=== PATIENT | male | born 1990 | race Hispanic/Latino ===

== ENCOUNTER 2021-04-06 05:30 | Emergency (ER) | payer SELFPAY ==
--- OUTSIDE RECORDS SUMMARY | 2021-04-06 05:32 | XMS REPORT | Continuity of Care Document ---
:1990 Author Organization [facility] t Address [address] [place] [address] Care Team Providers Name Role Phone Silverio Nam DO Attending Clinician Problems This patient has no known problems. Allergies, Adverse Reactions, Alerts This patient has no known allergies or adverse reactions. Medications This patient has no known medications. Procedures This patient has no known procedures. Encounters Start End Encounter Admission Attending Care Care Encounter Source Date/Time Date/Time Type Type Clinicians Facility Department ID 2020-05-22 2020-05-22 Emergency IZABELA Nam [id number] 09:45:00 11:14:00 Silverio Thapa [id number] [place] [id number] [place] [id number] Results This patient has no known results.
[2021-04-06] MEDS ORDERED: LIDOCAINE 1% MPF 5 ML VIAL ONE (07:39)
[2021-04-06] MEDS ORDERED: TETANUS & DIPHTHERIA TOX,ADULT 0.5 ML VIAL ONE (07:39)
[2021-04-06] MEDS ORDERED: HYDROCODONE/APAP 10/325 TAB ONE (07:39)
[2021-04-06] MEDS ORDERED: ONDANSETRON 4 MG (ODT) TAB ONE (08:11)
--- NOTE | 2021-04-06 08:23 | RAD REPORT ---
EXAM DESCRIPTION: CT - Thorax Wo Con CLINICAL HISTORY: Chest pain PAIN COMPARISON: No comparisons FINDINGS: The lungs are clear. No pleural thickening or pleural effusion. No pneumothorax. No axillary, mediastinal or hilar adenopathy. Left lateral seventh rib is mildly fractured. No gross upper abdominal finding. All CT scans are performed using dose optimization technique as appropriate and may include automated exposure control or mA/KV adjustment according to patient size. IMPRESSION: Mildly fractured left lateral seventh rib.No pneumothorax.
--- NOTE | 2021-04-07 17:14 | ER ---
Nurse's Notes [facility] Name: Aaron Chen III Age: 31 yrs Sex: Male : 1990 Arrival Date: 04/06/2021 Time: 05:34 Bed 15 Private MD: Diagnosis: Laceration without foreign body of knee;Fall on same level from slipping, tripping and stumbling with subsequent striking against object;Fracture of one rib, left side Presentation: 04/06 06:04 Chief complaint: Patient states: he was at a friend's house in the pool approx 90 mins bb ago tried to climb out on the ladder and fell injuring his left side and has a laceration to the right knee denies LOC. Care prior to arrival: None. Mechanism of Injury: Fall. Trauma event details: Injury occurred in the [facility], Injury occurred: at home. Injury occurred: April 06, 2021. 06:04 Acuity: SHARMIN 3 bb 06:04 Method Of Arrival: Ambulatory bb 06:08 Coronavirus screen: At this time, the client does not indicate any symptoms associated bb with coronavirus-19. Ebola Screen: No symptoms or risks identified at this time. Initial Sepsis Screen: Does the patient meet any 2 criteria? No. Patient's initial sepsis screen is negative. Does the patient have a suspected source of infection? No. Patient's initial sepsis screen is negative. Risk Assessment: Do you want to hurt yourself or someone else? Patient reports no desire to harm self or others. Onset of symptoms was April 06, 2021. Trauma Activation: Not Applicable Physician: ED Physician; Name: ; Notified At: ; Arrived At: Physician: General Surgeon; Name: ; Notified At: ; Arrived At: Physician: Radiology; Name: ; Notified At: ; Arrived At: Physician: Respiratory; Name: ; Notified At: ; Arrived At: Physician: Lab; Name: ; Notified At: ; Arrived At: Historical: - Allergies: 06:08 No Known Allergies; bb - Home Meds: 06:08 None [Active]; bb - PMHx: 06:08 None; bb - PSHx: 06:08 elbow surgery; bb - Immunization history: Last tetanus immunization: unknown. - Social history:: Smoking status: Patient reports the use of cigarette tobacco products, smokes one-half pack cigarettes per day, Patient uses alcohol, occasionally. Patient/guardian denies using street drugs. Screenin:04 Abuse screen: Denies threats or abuse. Tuberculosis screening: No symptoms or risk bb factors identified. 07:59 Nutritional screening: No deficits noted. Fall Risk None identified. ph Primary Survey: 06:04 NO uncontrolled hemorrhage observed. A: The patient is alert. Airway: patent. bb Breathing/Chest: Respiratory pattern: regular, Respiratory effort: spontaneous. Circulation: Heart tones present. Disability Alert. 07:59 Exposure/Environment: Obvious injury(ies) are noted at this time: lacerations to R ph knee. Reassessment Breathing/Chest Respiratory pattern Regular Respiratory effort Spontaneous Unlabored. Assessment: 06:04 General: Appears in no apparent distress. Behavior is calm, cooperative. Pain: bb Complains of pain in left side Pain currently is 8 out of 10 on a pain scale. Neuro: Level of Consciousness is awake, alert, obeys commands, Oriented to person, place, time, situation. Cardiovascular: Capillary refill < 3 seconds Patient's skin is warm and dry. Respiratory: Respiratory effort is even, unlabored, Respiratory pattern is regular. GI: No signs and/or symptoms were reported involving the gastrointestinal system. Derm: Skin is pink, warm \\T\\ dry. Wound noted right leg. Musculoskeletal: Circulation, motion, and sensation intact. 07:00 Reassessment: Patient appears in no apparent distress at this time. Patient and/or ph family updated on plan of care and expected duration. Pain level reassessed. Patient is alert, oriented x 3, equal unlabored respirations, skin warm/dry/pink. 07:57 Reassessment: Patient appears in no apparent distress at this time. Patient and/or ph family updated on plan of care and expected duration. Pain level reassessed. Patient is alert, oriented x 3, equal unlabored respirations, skin warm/dry/pink. Reassessment: Pt c/o "cold sweats and nausea" d/t oral pain mediation, ERP notified and verbal order received for Zofran PO, see MAR. Vital Signs: 06:04 BP 119 / 67; Pulse 112; Resp 16 S; Temp 99(O); Pulse Ox 99% on R/A; Weight 138.8 kg bb (M); Height 5 ft. 11 in. (180.34 cm) (R); Pain 8/10; 07:58 BP 112 / 72; Pulse 101; Resp 20; Pulse Ox 98% on R/A; ph 09:24 BP 120 / 62; Pulse 98; Resp 18; Temp 97.6; Pulse Ox 100% on R/A; ph 06:04 Body Mass Index 42.68 (138.80 kg, 180.34 cm) bb Lizette Coma Score: 06:04 Eye Response: spontaneous(4). Verbal Response: oriented(5). Motor Response: obeys bb commands(6). Total: 15. 07:58 Eye Response: spontaneous(4). Verbal Response: oriented(5). Motor Response: obeys ph commands(6). Total: 15. 09:24 Eye Response: spontaneous(4). Verbal Response: oriented(5). Motor Response: obeys ph commands(6). Total: 15. Trauma Score (Adult): 06:04 Eye Response: spontaneous(1); Verbal Response: oriented(1); Motor Response: obeys bb commands(2); Systolic BP: > 89 mm Hg(4); Respiratory Rate: 10 to 29 per min(4); [place] Score: 15; Trauma Score: 12 07:58 Eye Response: spontaneous(1); Verbal Response: oriented(1); Motor Response: obeys ph commands(2); Systolic BP: > 89 mm Hg(4); Respiratory Rate: 10 to 29 per min(4); Lizette Score: 15; Trauma Score: 12 09:24 Eye Response: spontaneous(1); Verbal Response: oriented(1); Motor Response: obeys ph commands(2); Systolic BP: > 89 mm Hg(4); Respiratory Rate: 10 to 29 per min(4); [place] Score: 15; Trauma Score: 12 ED Course: 05:34 Patient arrived in ED. ds1 06:04 Patient has correct armband on for positive identification. bb 06:04 Patient maintains SpO2 saturation greater than 95% on room air. bb 06:05 Triage completed. bb 06:08 Arm band placed on Patient placed in waiting room, Patient notified of wait time. bb 06:21 Shelley Jones FNP-C is PHCP. kb 06:22 Dre Robertson MD is Attending Physician. kb 06:58 CT Chest Wo Con In Process Unspecified. EDMS 07:04 Mariaelena Johnson, RN is Primary Nurse. bb 07:59 Thermoregulation: warm blanket given to patient. ph 09:23 No provider procedures requiring assistance completed. Patient did not have IV access ph during this emergency room visit. Administered Medications: 07:44 Drug: [place] (HYDROcodone-acetaminophen) 10 mg-325 mg 1 tabs Route: PO; ph 09:22 Follow up: Response: No adverse reaction ph 07:56 Drug: Tetanus-Diphtheria Toxoid Adult 0.5 ml {Tram Inspector: LU[employer]EX. Exp: ph 11/30/2022. Lot #: [id number]. } Route: IM; Site: left deltoid; 09:22 Follow up: Response: No adverse reaction ph 07:57 Drug: Zofran (Ondansetron) 4 mg Route: PO; ph 09:23 Follow up: Response: No adverse reaction ph 08:45 Drug: Lidocaine (1 %) 1 vials Volume: 5 ml; Route: Infiltration; ph Intake: 06:04 PO: 0ml; Total: 0ml. bb Outcome: 08:53 Discharge ordered by MD. kb 09:23 Discharged to home ambulatory. ph 09:23 Condition: good 09:23 Discharge instructions given to patient, Instructed on discharge instructions, follow up and referral plans. medication usage, wound care, Demonstrated understanding of instructions, follow-up care, medications, wound care, Prescriptions given X 1. 09:24 Patient's length of stay was not longer than 2 hours. ph 09:25 Patient left the ED. ph Signatures: Dispatcher [employer] EDKY Shelley Jones, SHAWN PINEDA-Kasey Wang ds1 Mariaelena Johnson, RN RN bb Kate Rodarte RN RN ph
--- NOTE | 2021-04-07 17:14 | EDPHYS ---
Physician Documentation [facility] Name: Aaron Chen III Age: 31 yrs Sex: Male : 1990 Arrival Date: 04/06/2021 Time: 05:34 Bed 15 Private MD: ED Physician Dre Robertson HPI: 04/06 09:55 This 31 yrs old Male presents to ER via Ambulatory with complaints of Fall kb Injury - Rib Pain. 09:55 Details of fall: The patient fell from an upright position. Onset: The symptoms/episode kb began/occurred just prior to arrival. Associated injuries: The patient sustained injury to the chest, specifically the left lateral posterior chest and left lateral anterior chest, abrasion, pain with breathing, pain with movement, tenderness, right knee, laceration. Severity of symptoms: At their worst the symptoms were moderate, in the emergency department the symptoms are unchanged. The patient has not experienced similar symptoms in the past. The patient has not recently seen a physician. As he was climbing out of a pool and his friend shook the ladder causing him to fall. Reports hitting left chest on edge and hitting knee on something causing laceration. Pain to chest increased with movement and breathing. Historical: - Allergies: 06:08 No Known Allergies; bb - Home Meds: 06:08 None [Active]; bb - PMHx: 06:08 None; bb - PSHx: 06:08 elbow surgery; bb - Immunization history: Last tetanus immunization: unknown. - Social history:: Smoking status: Patient reports the use of cigarette tobacco products, smokes one-half pack cigarettes per day, Patient uses alcohol, occasionally. Patient/guardian denies using street drugs. ROS: 09:52 Constitutional: Negative for fever, chills, and weight loss. kb 09:52 Cardiovascular: Positive for chest pain, with movement, of the left lateral anterior chest and left lateral posterior chest. 09:52 Skin: Positive for abrasion(s), laceration(s). 09:52 All other systems are negative. Exam: 09:53 Constitutional: This is a well developed, well nourished patient who is awake, alert, kb and in no acute distress. Head/Face: Normocephalic, atraumatic. ENT: Moist Mucous membranes Cardiovascular: Regular rate and rhythm with a normal S1 and S2. No gallops, murmurs, or rubs. No pulse deficits. Respiratory: Respirations even and unlabored. No increased work of breathing, no retractions or nasal flaring. Abdomen/GI: Soft, non-tender. No distention MS/ Extremity: Pulses equal, no cyanosis. Neurovascular intact. Full, normal range of motion. Neuro: Awake and alert, GCS 15, oriented to person, place, time, and situation. Moves all extremities. Normal gait. Psych: Awake, alert, with orientation to person, place and time. Behavior, mood, and affect are within normal limits. 09:53 Chest/axilla: Inspection: abrasion, that is moderate, of the left lateral posterior chest and left lateral anterior chest Palpation: tenderness, that is moderate, of the left lateral posterior chest and left lateral anterior chest, that totally reproduces the patient's complaints. 09:53 Skin: injury, laceration(s), the wound is approximately 3 cm(s), of the right knee, the second wound is approximately 1 cm(s), of the right knee, that can be described as clean, no foreign body, linear, without bleeding. Vital Signs: 06:04 BP 119 / 67; Pulse 112; Resp 16 S; Temp 99(O); Pulse Ox 99% on R/A; Weight 138.8 kg bb (M); Height 5 ft. 11 in. (180.34 cm) (R); Pain 8/10; 07:58 BP 112 / 72; Pulse 101; Resp 20; Pulse Ox 98% on R/A; ph 09:24 BP 120 / 62; Pulse 98; Resp 18; Temp 97.6; Pulse Ox 100% on R/A; ph 06:04 Body Mass Index 42.68 (138.80 kg, 180.34 cm) bb Lizette Coma Score: 06:04 Eye Response: spontaneous(4). Verbal Response: oriented(5). Motor Response: obeys bb commands(6). Total: 15. 07:58 Eye Response: spontaneous(4). Verbal Response: oriented(5). Motor Response: obeys ph commands(6). Total: 15. 09:24 Eye Response: spontaneous(4). Verbal Response: oriented(5). Motor Response: obeys ph commands(6). Total: 15. Trauma Score (Adult): 06:04 Eye Response: spontaneous(1); Verbal Response: oriented(1); Motor Response: obeys bb commands(2); Systolic BP: > 89 mm Hg(4); Respiratory Rate: 10 to 29 per min(4); Lizette Score: 15; Trauma Score: 12 07:58 Eye Response: spontaneous(1); Verbal Response: oriented(1); Motor Response: obeys ph commands(2); Systolic BP: > 89 mm Hg(4); Respiratory Rate: 10 to 29 per min(4); Lizette Score: 15; Trauma Score: 12 09:24 Eye Response: spontaneous(1); Verbal Response: oriented(1); Motor Response: obeys ph commands(2); Systolic BP: > 89 mm Hg(4); Respiratory Rate: 10 to 29 per min(4); [place] Score: 15; Trauma Score: 12 Laceration: 08:50 Wound Repair of 1cm ( 0.4in ) subcutaneous laceration to right knee. Linear shaped.. kb Distal neuro/vascular/tendon intact. Anesthesia: Wound infiltrated with 1 mls of 1% lidocaine. Wound prep: Moderate cleansing with betadine by me, Wound irrigation with saline by me. Skin closed with 4 1-0 Prolene using simple sutures and sterile technique. Patient tolerated well. 08:50 Wound Repair of 3cm ( 1.2in ) subcutaneous laceration to right knee. Irregularly kb shaped.. Distal neuro/vascular/tendon intact. Anesthesia: Wound infiltrated with 3 mls of 1% lidocaine. Wound prep: Extensive cleansing with betadine by me, Wound irrigation with saline by me. Skin closed with 4 4-0 Prolene using 2 simple sutures, 2 cruciate sutures. Patient tolerated well. MDM: 06:26 Patient medically screened. kb 08:52 Data reviewed: vital signs, nurses notes. Data interpreted: Pulse oximetry: on room air kb is 98 %. Interpretation: normal. Counseling: I had a detailed discussion with the patient and/or guardian regarding: the historical points, exam findings, and any diagnostic results supporting the discharge/admit diagnosis, radiology results, the need for outpatient follow up, a family practitioner, to return to the emergency department if symptoms worsen or persist or if there are any questions or concerns that arise at home. 04/06 06:32 Order name: CT Chest Wo Con; Complete Time: 08:24 kb 04/06 06:32 Order name: Dressing - Wound; Complete Time: 07:43 kb 04/06 06:32 Order name: Gloves, Sterile; Complete Time: 07:43 kb 04/06 06:32 Order name: Prolene, Sutures; Complete Time: 07:43 kb 04/06 06:32 Order name: Setup Suture Tray; Complete Time: 07:43 kb Administered Medications: 07:44 Drug: [place] (HYDROcodone-acetaminophen) 10 mg-325 mg 1 tabs Route: PO; ph 09:22 Follow up: Response: No adverse reaction ph 07:56 Drug: Tetanus-Diphtheria Toxoid Adult 0.5 ml {Silver Solution Mixer: [employer]. Exp: ph 11/30/2022. Lot #: [id number]. } Route: IM; Site: left deltoid; 09:22 Follow up: Response: No adverse reaction ph 07:57 Drug: Zofran (Ondansetron) 4 mg Route: PO; ph 09:23 Follow up: Response: No adverse reaction ph 08:45 Drug: Lidocaine (1 %) 1 vials Volume: 5 ml; Route: Infiltration; ph Disposition Summary: 04/06/21 08:53 Discharge Ordered Location: Home kb Condition: Stable kb Diagnosis - Laceration without foreign body of knee kb - Fall on same level from slipping, tripping and stumbling with subsequent striking kb against object - Fracture of one rib, left side kb Followup: kb - With: Emergency Department - When: As needed - Reason: Worsening of condition Followup: kb - With: Private Physician - When: 2 - 3 days - Reason: Recheck today's complaints, Continuance of care, Re-evaluation by your physician Discharge Instructions: - Discharge Summary Sheet kb - Laceration Care, Adult, [id number] kb - Rib Fracture, [id number] kb Forms: - Medication Reconciliation Form kb - Thank You Letter kb - Antibiotic Education kb - Prescription Opioid Use kb Prescriptions: - Diclofenac Sodium 75 mg Oral tablet,delayed release (DR/EC) - take 1 tablet by ORAL route 2 times per day As needed; 30 tablet; Refills: 0, kb Product Selection Permitted Signatures: Dispatcher [employer] Shelley Frazier, Mariaelena Henderson RN RN bb Rodarte, Kate, RN RN ph
[2021-04-08 05:10] VITALS: BP 120/62; TEMP 97.6; O2SAT 100
== END 2021-04-06 09:25 | disposition home or self-care (01) ==
LOC: ER 05:30
PROC: 0JQN0ZZ Repair Right Lower Leg Subcutaneous Tissue and Fascia, Open Approach (ICD-10-PCS; principal; 2021-04-06)
DX: S22.32XA Fracture of one rib, left side, initial encounter for closed fracture (principal); S81.011A Laceration without foreign body, right knee, initial encounter; W11.XXXA Fall on and from ladder, initial encounter; Y92.34 Swimming pool (public) as the place of occurrence of the external cause; Z23 Encounter for immunization
CPT/HCPCS: 71250; 90714

== ENCOUNTER 2021-04-15 06:16 | Emergency (ER) | payer SELFPAY ==
--- OUTSIDE RECORDS SUMMARY | 2021-04-15 06:18 | XMS REPORT | Continuity of Care Document ---
:1990 Author Organization [facility] t Address [address] [place] [address] Care Team Providers Name Role Phone Silverio [...] Department ID 2020-05-22 2020-05-22 Emergency IZABELA Nam [id number] 09:45:00 11:14:00 Silverio Thapa [id number] [place] [id number] [place] [phone] [id number] Results This patient has no known results.
--- NOTE | 2021-04-15 06:40 | ER ---
Nurse's Notes [facility] Name: Aaron Chen III Age: 31 yrs Sex: Male : 1990 Arrival Date: 04/15/2021 Time: 06:17 Bed Waiting Private MD: Diagnosis: Encounter for removal of sutures Presentation: 04/15 06:27 Chief complaint: Patient states: suture removal from right knee, no redness or drainage em noted. Coronavirus screen: Client denies travel out of the [place] in the last 14 days. Ebola Screen: Patient negative for fever greater than or equal to 101.5 degrees Fahrenheit, and additional compatible Ebola Virus Disease symptoms Patient denies exposure to infectious person. Patient denies travel to an Ebola-affected area in the 21 days before illness onset. No symptoms or risks identified at this time. Initial Sepsis Screen: Does the patient meet any 2 criteria? No. Patient's initial sepsis screen is negative. Does the patient have a suspected source of infection? No. Patient's initial sepsis screen is negative. Risk Assessment: Do you want to hurt yourself or someone else? Patient reports no desire to harm self or others. Onset of symptoms was April 15, 2021. 06:27 Method Of Arrival: Ambulatory em 06:27 Acuity: SHARMIN 5 em Historical: - Allergies: 06:29 No Known Allergies; em - PMHx: 06:29 None; em - PSHx: 06:29 elbow surgery; em - Immunization history:: Adult Immunizations up to date. - Social history:: Smoking status: Patient denies any tobacco usage or history of. Screenin:33 Abuse screen: Denies threats or abuse. Nutritional screening: No deficits noted. em Tuberculosis screening: No symptoms or risk factors identified. Fall Risk None identified. Assessment: 06:34 General: Appears in no apparent distress. comfortable, Behavior is calm, cooperative, em appropriate for age. Pain: Denies pain. Neuro: Level of Consciousness is awake, alert, obeys commands, Oriented to person, place, time, situation. Cardiovascular: Capillary refill < 3 seconds Patient's skin is warm and dry. Respiratory: Airway is patent Respiratory effort is even, unlabored, Respiratory pattern is regular, symmetrical. Derm: Skin is intact, is healthy with good turgor, Skin is pink, warm \T\ dry. Musculoskeletal: Capillary refill < 3 seconds, Range of motion: intact in all extremities. Vital Signs: 06:27 Resp 18; Temp 97.8; Pulse Ox 99% on R/A; em 06:32 BP 124 / 68; Pulse 67; em ED Course: 06:17 Patient arrived in ED. wm 06:29 Triage completed. em 06:29 Arm band placed on. em 06:33 Patient has correct armband on for positive identification. em 06:33 Removal of Removed sutures from right knee Suture site is well healed Patient tolerated em well. 06:34 No provider procedures requiring assistance completed. Patient did not have IV access em during this emergency room visit. 06:39 Dionisio Brennan PA is PHCP. elizabeth 06:39 Dre Robertson MD is Attending Physician. [email or web address] Administered Medications: No medications were administered Outcome: 06:39 Discharge ordered by . jrJerson 06:44 Discharged to home ambulatory. em 06:44 Condition: good 06:44 Discharge instructions given to patient, Instructed on discharge instructions, follow up and referral plans. Demonstrated understanding of instructions, follow-up care. 06:49 Patient left the ED. em Signatures: Ben Galvan, RN RN em Dionisio Brennan PA PA [email or web address] Nanci Snider
--- NOTE | 2021-04-15 06:40 | EDPHYS ---
Physician Documentation [facility] Name: Aaron Chen III Age: 31 yrs Sex: Male : 1990 Arrival Date: 04/15/2021 Time: 06:17 Bed Waiting Private MD: ED Physician Dre Robertson HPI: 04/15 06:40 This 31 yrs old Male presents to ER via Ambulatory with complaints of Suture jr8 Removal. 06:40 The patient has sutures on the right knee. Previous treatment: The patient was jr8 initially treated 9 day(s) ago. Sutures/neri progress: The patient has no c/o's. The wound is well-healing with no redness, swelling, discharge, or dehiscence reported. The patient has not experienced similar symptoms in the past. The patient has not recently seen a physician. Fell off ladder 9 days ago sustaining laceration to right knee. Had sutures put in which has been doing well. Historical: - Allergies: 06:29 No Known Allergies; em - PMHx: 06:29 None; em - PSHx: 06:29 elbow surgery; em - Immunization history:: Adult Immunizations up to date. - Social history:: Smoking status: Patient denies any tobacco usage or history of. ROS: 06:40 Constitutional: Negative for fever, chills, and weight loss, Cardiovascular: Negative jr8 for chest pain, palpitations, and edema, Respiratory: Negative for shortness of breath, cough, wheezing, and pleuritic chest pain, Abdomen/GI: Negative for abdominal pain, nausea, vomiting, diarrhea, and constipation, MS/Extremity: Negative for injury and deformity, Neuro: Negative for headache, weakness, numbness, tingling, and seizure. 06:40 Skin: Positive for laceration(s). Exam: 06:40 Constitutional: This is a well developed, well nourished patient who is awake, alert, jr8 and in no acute distress. Cardiovascular: Regular rate and rhythm with a normal S1 and S2. No gallops, murmurs, or rubs. Normal PMI, no JVD. No pulse deficits. Respiratory: Lungs have equal breath sounds bilaterally, clear to auscultation and percussion. No rales, rhonchi or wheezes noted. No increased work of breathing, no retractions or nasal flaring. MS/ Extremity: Pulses equal, no cyanosis. Neurovascular intact. Full, normal range of motion. Neuro: Awake and alert, GCS 15, oriented to person, place, time, and situation. Motor strength 5/5 in all extremities. Sensory grossly intact. 06:40 Skin: Wound recheck: Suture laceration closure: the wound is healing well, the edges are well approximated, no evidence of dehiscence, no drainage, no erythema, no swelling. Vital Signs: 06:27 Resp 18; Temp 97.8; Pulse Ox 99% on R/A; em 06:32 BP 124 / 68; Pulse 67; em Procedures: 06:40 Suture/Staple removal: Removed 5 sutures, from right leg, site appears well healed, jr8 dressed with band aid, Patient tolerated well. MDM: 06:39 Data reviewed: vital signs, nurses notes. Counseling: I had a detailed discussion with jr8 the patient and/or guardian regarding: the historical points, exam findings, and any diagnostic results supporting the discharge/admit diagnosis, the need for outpatient follow up, a family practitioner, to return to the emergency department if symptoms worsen or persist or if there are any questions or concerns that arise at home. 06:39 Patient medically screened. jr8 Administered Medications: No medications were administered Disposition Summary: 04/15/21 06:39 Discharge Ordered Location: Home [facility] Problem: new jr8 Symptoms: have improved jr8 Condition: Stable jr8 Diagnosis - Encounter for removal of sutures jr8 Followup: jr8 - With: Private Physician - When: As needed - Reason: Wound Recheck, Recheck today's complaints, Continuance of care, Re-evaluation by your physician Discharge Instructions: - Discharge Summary Sheet jr8 - Suture Removal, Care After jr8 Forms: - Medication Reconciliation Form jr8 - Thank You Letter jr8 - Antibiotic Education jr8 - Prescription Opioid Use jr8 Addendum: 04/17/2021 02:56 Co-signature as Attending Physician, Dre Robertson MD. m h7 Signatures: Ben Galvan, RN RN em Dionisio Brennan PA PA jr8 Dre Robertson MD MD [email or web address]
[2021-04-15 06:54] VITALS: TEMP 97.8; O2SAT 99
[2021-04-15 06:55] VITALS: BP 124/68
== END 2021-04-15 06:49 | disposition home or self-care (01) ==
LOC: ER 06:16
DX: Z48.02 Encounter for removal of sutures (principal)
CPT/HCPCS: 99281